=== PATIENT | male | born 1960 | race Caucasian/White ===

== ENCOUNTER 2020-11-04 06:07 | Day surgery (SDC) | payer BC ==
--- NOTE | 2020-10-30 14:45 | RAD REPORT ---
EXAM DESCRIPTION: RAD - Chest Pa And Lat (2 Views) - 10/30/2020 2:17 pm CLINICAL HISTORY: Preop Chest pain. COMPARISON: Chest Pa And Lat (2 Views) dated 08/15/2016 FINDINGS: The lungs are clear. The heart is normal in size. No displaced fractures. IMPRESSION: No acute or concerning finding suspected.
[2020-10-30 14:51] LABS: Absolute Lymphocytes (CBC) 1.9 K/uL (0.7-4.9); Basophils % 1.8 % (0-1.3); Hematocrit 43.6 % (39.6-49.0); MPV 8.5 fL (7.6-11.3); RBC Red Blood Cell Count 4.57 M/uL (4.33-5.43)
[2020-10-30 14:56] LABS: Protime INR 0.98
[2020-10-30 15:07] LABS: Potassium 4.1 mmol/L (3.5-5.1)
--- NOTE | 2020-10-31 20:03 | EKG ---
Test Date: 2020-10-30 Test Time: 14:19:50 Electrolog Operator: KIMANI MEASUREMENT RESULTS: Intervals: Rate: 55 MD: 196 QRSD: 86 QT: 416 QTc: 397 Sloan: P: 51 MD: 196 QRS: 29 T: 42 INTERPRETIVE STATEMENTS: Sinus bradycardia Otherwise normal ECG No previous ECG available for comparison Electronically Signed On 10-31-20 20:01:23 GUIDANCE COUNSELOR by Jesus Patterson
[2020-11-04] MEDS ORDERED: NS 0.9% VIAL 10 ML ONE (06:30)
[2020-11-04] MEDS ORDERED: MIDAZOLAM HCL 2 MG/2 ML INJ ONE (06:31)
[2020-11-04] MEDS ORDERED: LIDOCAINE 2% MPF 5 ML VIAL ONE ×2 (06:31→07:32)
[2020-11-04] MEDS ORDERED: dexAMETHasone 10 MG/ML VIAL ONE ×3 (06:31→07:39)
[2020-11-04] MEDS ORDERED: FENTANYL CITR 100 MCG/2 ML ONE (06:31)
[2020-11-04] MEDS ORDERED: ROPLVACAINE HCL 40 ML ONE (06:32)
[2020-11-04] MEDS ORDERED: CEFAZOLIN/SWI 1gm 1 GM/10 ML SYR ONE (06:35)
[2020-11-04] MEDS ORDERED: Ringers Lactate 1,000 ML IV ONE ×2 (06:35→08:31)
[2020-11-04] MEDS ORDERED: EPINEPHRINE/PF 1 MG/ML AMP ONE (07:13)
[2020-11-04] MEDS ORDERED: propofoL 200 MG/20 ML VIAL IV ONE (07:31)
[2020-11-04] MEDS ORDERED: KETOROLAC 30 MG/ML INJ ONE (07:32)
[2020-11-04] MEDS ORDERED: ONDANSETRON 4 MG/2 ML VIAL ONE (07:35)
[2020-11-04] MEDS ORDERED: BUPIVACAINE 0.25% PF 10 ML VIAL ONE (07:40)
[2020-11-04] MEDS ORDERED: EPHEDRINE SULF 50 MG/ML VIAL ONE (08:03)
[2020-11-04] MEDS ORDERED: HYDROCODONE/APAP 7.5/325 MG TAB ONE (11:09)
--- NOTE | 2020-11-04 12:39 | RAD REPORT ---
EXAM DESCRIPTION: RAD - Shoulder 1 View - 11/04/2020 10:31 am CLINICAL HISTORY: s/p rcr COMPARISON: Chest Pa And Lat (2 Views) dated 10/30/2020; Chest Pa And Lat (2 Views) dated 08/15/2016 TECHNIQUE: Single semi-upright portable image of the right shoulder obtained following rotator cuff repair. FINDINGS: No fracture or dislocation of the proximal humerus. Air in the soft tissues around the rig ht shoulder joint not unexpected. No fracture or acute finding of the clavicle or AC joint. Acromial humeral joint space is normal. No foreign body. IMPRESSION: Postoperative right shoulder examination showing no suspicious or unexpected finding.
[2020-11-04 15:32] VITALS: BP 102/65; TEMP 97.2; O2SAT 94
--- NOTE | 2020-11-05 03:32 | OP ---
Date of Procedure: 11/04/2020 Surgeon: Derrick Marquez MD Preoperative Diagnoses: 1.Right shoulder rotator cuff tear. 2.Right shoulder bicipital tenosynovitis. 3.Right shoulder impingement syndrome. Postoperative Diagnoses: 1.Right shoulder rotator cuff tear. 2.Right shoulder bicipital tenosynovitis. 3.Right shoulder impingement syndrome. 4.Right shoulder superior labrum anterior and posterior tear. Procedure Performed: 1.Right shoulder arthroscopic rotator cuff repair. 2.Right shoulder arthroscopic superior labrum anterior and posterior tear debridement. 3.Right shoulder arthroscopic subacromial decompression. 4.Right shoulder open subpectoral biceps tenodesis. Anesthesia: General endotracheal. Fluids: Per Anesthesia record. Estimated Blood Loss: 20 cc. Complications: None. Implants: 1.One 5.5 mm Arthrex corkscrew. 2.Two 4.75 mm Arthrex SwiveLocks. 3.One 7 x 19 mm Arthrex Bio-Tenodesis screw. Indication For Procedure: Mr. Ortiz is 60-year-old male presented to my clinic with MRI findings an d signs and symptoms consistent with a right shoulder rotator cuff tear. I discussed with the patien t at length risks and benefits associated with operative and nonoperative treatment. He expressed un derstanding and elected to proceed with operative treatment. Description Of Procedure: After informed consent was obtained, the patient was identified in the pre operative holding area. The right upper extremity was marked. The patient was then taken to the PAC U where he underwent an interscalene block of his right upper extremity performed by Anesthesia. He was then taken back to the operating room, transferred to the operating table in supine fashion, [facility] under general anesthesia. His was then placed in the beach chair position with the extremities we ll padded. His right upper extremity was examined. The patient had full range of motion of his righ t shoulder joint with no significant instability noted. The right upper extremity was then prepped a nd draped in the usual sterile fashion. Time-out was initiated. The correct patient and procedure w ere confirmed and identified. The patient did receive his preoperative prophylactic antibiotics. Vi a the posterior portal position, a spinal needle was then introduced into the glenohumeral joint and the shoulder was injected with 30 cc of normal saline to distend the capsule. A posterior portal was then created and an arthroscope was brought in via the posterior portal position via direct visualiz ation and anterior portal was created. Diagnostic arthroscopy was performed. The patient was noted to have significant fraying of his posterior labrum as well as a SLAP tear and fraying of his biceps tendon anchor. At that point, a biceps tenotomy was performed using a meniscal biter. The biceps te ndon was completely released off the superior labrum. The SLAP tear was then debrided using an arthr oscopic shaver to smooth borders as well as a posterior labrum. There was no insignificant stability noted of the superior labrum. The subscapularis was found to be intact. There were no loose bodies found within the axillary pouch. A spinal needle was then introduced via the lateral portal positio n and a stab incision was made. An obturator was introduced and obturator was able to bring into the shoulder intraarticularly consistent with a full-thickness rotator cuff tear. Arthroscopic shaver w as then used to debride the undersurface of the rotator cuff tear as well as the greater tuberosity t o create a bleeding bony bed. The arthroscope was then brought in the subacromial space. Subacromia l bursectomy was performed. The rotator cuff tear was then again identified and debrided on the burs al side to healthy tissue. A stab incision was made just lateral to the acromion and a 5.5 mm anchor was then placed just lateral to the articular surface. There was a double loaded anchor. The sutur es were then passed in an anterior to posterior fashion and entirely in a horizontal mattress fashion . Two lateral SwiveLock anchors were then placed for lateral row fixation. The sutures were placed in a crisscross fashion and palpable increased surface area of the rotator cuff contact onto the grea ter tuberosity. Remaining sutures were then cut and removed. Undersurface of the acromion was then debrided using a radiofrequency ablator and an acromioplasty and subacromial decompression were then performed with an arthroscopic alexis. Arthroscopic instruments were then removed without complication . Next, attention was taken to the open subpectoral biceps tenodesis. Approximately, a 4 cm incisio n was made just medial to the pec insertion. Dissection was then taken through the fascia. The long head biceps tendon was then identified and brought out through the incision. Approximately 3 cm dis brenda, the musculotendinous junction was then marked. Remaining tendon was then cut and the tendon was then whipstitched with the Arthrex FiberLoop. It was then measured, and within the bicipital groove , a guide pin was then placed in bicortical fashion followed by 7.5 mm reamer to create a tunnel usin g a 7.5 mm reamer in a unicortical fashion. A size 7 mm Arthrex Bio-Tenodesis screw was then placed with one of the suture limbs going through the screw and put within the tunnel. The sutures were the n tied over the tunnel. There was good overall fixation of the biceps tendon within the tunnel. The remaining suture was then cut. The wound was then irrigated thoroughly with normal saline. Subcuta neous tissue was approximated using a 2-0 Vicryl. Portals and skin were approximated using a 3-0 Mon ocryl. Sterile dressings were applied and the patient was placed in a shoulder immobilizer, awakened , and transferred to PACU in stable condition. Postoperative Plan: He will follow up in my clinic in 1 week for wound check. He will begin physica l therapy per medium rotator cuff repair protocol at 3 weeks postop with biceps tenodesis protocol. TRUPTI/MODL Voice ID: [id number] Report ID: [id number]
== END 2020-11-04 11:40 | disposition home or self-care (01) ==
LOC: OR 06:07
PROVIDERS: ATTEND Orthopaedic Surgery Sports Medicine
PROC: 0RNJ4ZZ Release Right Shoulder Joint, Percutaneous Endoscopic Approach (ICD-10-PCS; 2020-11-04)
PROC: 0LS30ZZ Reposition Right Upper Arm Tendon, Open Approach (ICD-10-PCS; 2020-11-04)
PROC: 0LQ14ZZ Repair Right Shoulder Tendon, Percutaneous Endoscopic Approach (ICD-10-PCS; principal; 2020-11-04 07:30)
DX: M75.121 Complete rotator cuff tear or rupture of right shoulder, not specified as traumatic (principal); M75.21 Bicipital tendinitis, right shoulder; M75.41 Impingement syndrome of right shoulder; M75.81 Other shoulder lesions, right shoulder; M19.022 Primary osteoarthritis, left elbow; Z20.828 Contact with and (suspected) exposure to other viral communicable diseases
CPT/HCPCS: 93005; 85025; 80048; 36415; 85610; 85730; 71046; 73020; 29827; 29826; 23430; U0002; J2704; J0171; J2250; J3010; J1100 ×2; J2795; J0690; J7120 ×2; J2405